=== PATIENT | female | born 1995 | race Two or more races ===

== ENCOUNTER 2023-07-16 14:20 | Emergency (ER) | payer MEDICAID, OTHER ==
[~2023-07-16] VITALS: Ht 165.1 cm; Wt 53.5 kg
[2023-07-16] MEDS ORDERED: SODIUM CHLORIDE 0.9% 1,000 ML IV ONE ×2 (14:45)
[2023-07-16] MEDS ORDERED: NALOXONE HCL 1MG/ML 2ML SYRINGE IV ONE (15:30)
[2023-07-16 15:54] LABS: Alanine Aminotransferase 35 U/L (7-40); Albumin 4.3 g/dL (3.2-4.8); Alkaline Phosphatase 69 U/L (46-116); Anion Gap 10 (5-15); Aspartate Aminotransferase 30 U/L (13-40); Calcium 9.5 mg/dL (8.7-10.4); Carbon Dioxide 21 mmol/L (20-30); Chloride 107 mmol/L (98-107); Glucose 105 mg/dL (74-106); Potassium 3.3 mmol/L (3.5-5.1); Sodium 138 mmol/L (136-145)
[2023-07-16 15:55] LABS: Bilirubin, Total 0.3 mg/dL (0.2-1.0); Total Protein 7.8 g/dL (5.7-8.2)
[2023-07-16 15:56] LABS: Basophils # (auto) 0.1 10 ^3/uL (0-0.2); Basophils % (auto) 1.2 % (0.0-2.0); Eosinophils # (auto) 0.1 10 ^3/uL (0-0.8); Eosinophils % (auto) 1.2 % (0.0-7.0); Hematocrit 31.4 % (36.0-46.0); Hemoglobin 9.5 g/dL (12.2-16.2); Lymphocytes # (auto) 2.1 10 ^3/uL (0.4-5.4); Lymphocytes % (auto) 28.7 % (10.0-50.0); Mean Corpuscular Hemoglobin 17.8 pg (28.0-32.0); Mean Corpuscular Hgb Conc. 30.2 g/dL (32.0-36.0); Mean Corpuscular Volume 58.9 fL (80.0-100.0); Monocytes # (auto) 0.5 10 ^3/uL (0-1.3); Monocytes % (auto) 6.3 % (0.0-12.0); Neutrophils # (auto) 4.6 10 ^3/uL (1.6-8.6); Neutrophils % (auto) 62.6 % (37.0-80.0); Nucleated Red Blood Cells % 0.1 %; Red Blood Cells 5.34 10^6/uL (4.0-5.20); Red Cell Distribution Width 18.8 % (11.8-14.3); White Blood Cell 7.4 10^3/uL (4.4-10.8)
[2023-07-16 16:03] LABS: BUN/Creatinine Ratio 7.8 (10.0-20.0); Blood Urea Nitrogen < 5 mg/dL (9-23)
[2023-07-17 05:45] VITALS: PULSE 82; RESP 16; O2SAT 97
[2023-07-17] MEDS ORDERED: THIAMINE 100mg/ml INJ (200mg/2ml VIAL) IV ONE (06:45)
[2023-07-17 07:12] LABS: Rapid Influenza A Negative (Negative); Rapid Influenza B Negative (Negative); Urine Bacteria NONE SEEN /hpf (None Seen); Urine Blood 3+ /uL (Negative); Urine Clarity Clear (Clear); Urine Color Yellow (Yellow); Urine Mucus FEW (None Seen); Urine Protein, UAD 1+ (Negative); Urine Specific Gravity 1.029 (1.001-1.035); Urine WBC 2 /hpf (0 - 5); Urine pH 6.5 (5.0-8.0)
[2023-07-17 07:13] LABS: COVID19 ANTIGEN SOFIA FIA NEGATIVE (NEGATIVE)
[2023-07-17 07:23] LABS: Amphetamine Screen, Urine Pos (NEGATIVE); Barbiturate Scree,Urine Neg (NEGATIVE); Benzodiazephine Screen, Urine Neg (NEGATIVE); Cocaine Screen, Urine Neg (NEGATIVE); Opiate Scree,Urine Neg (NEGATIVE)
[2023-07-17 07:24] LABS: Cannabinoid Screen, Urine Neg (NEGATIVE); Phencyclidine Screen, Urine Neg (NEGATIVE)
[2023-07-17 08:00] VITALS: BP 128/71; PULSE 84; RESP 16; TEMP 98.7; O2SAT 98
== END 2023-07-17 14:29 | disposition left against medical advice (07) ==
LOC: ER 14:20 → EDBD 14:20 → ER 07-17 14:29
DX: R41.82 Altered mental status, unspecified (principal); T40.415A Adverse effect of fentanyl or fentanyl analogs, initial encounter; Z79.899 Other long term (current) drug therapy; Z20.822 Contact with and (suspected) exposure to COVID-19; Y92.89 Other specified places as the place of occurrence of the external cause
CPT/HCPCS: 36415; 80053; 80307; 80320; 81001; 85025; 87426; 87804; 96374; 99283; J3411

== ENCOUNTER 2024-09-19 08:10 | Emergency (ER) | payer MEDICAID ==
[~2024-09-19] VITALS: Ht 182.9 cm; Wt 55.0 kg
[2024-09-19 08:16] VITALS: BP 126/80; PULSE 99; RESP 18; O2SAT 100
--- NOTE | 2024-09-19 08:42 | ED.PDOC ---
History of Present Illness HPI Comments 29-year-old female with no reported PMHx brought in by EMS presents with a chief complaint of nausea and vomiting while being currently . Patient states that she is currently , but does not know how far along she is, . Patient mentions that her LMP was May 2024 and that is when she found out she was . Patient denies seeing an DIESEL RETROFIT DESIGNER or taking vitamins. Patient mentions that she had 2 episodes of emesis and it contained bright red tinged blood which is why she called EMS. Patient mentions that onset of symptoms began yesterday around 0300. No other symptoms or modifying factors present at this time. Chief Complaint: GI Bleed Time Seen by MD: 08:16 Reviewed Notes: Medications, Allergies Allergies: Coded Allergies: NO KNOWN ALLERGIES (Unverified , 07/16/23) Information Source: Patient, Emergency Med Personnel Mode of Arrival: EMS Severity: Moderate Timing: Hours Duration: Since onset Prehospital treatment: None Past Medical History PAST MEDICAL HISTORY: Denies Surgical History: Denies all surgeries COMPLAINT ANALYST History: No Pertinent COMPLAINT ANALYST History Family History Family History: Reviewed,noncontributory to illness Social History Smoker: Non-Smoker Alcohol: Denies ETOH Use Drugs: Other Lives In: Home Constitutional: denies: chills, diaphoresis, fatigue, fever, malaise, sweats, weakness, others EENTM: denies: blurred vision, double vision, ear bleeding, ear discharge, ear drainage, ear pain, ear ringing, eye pain, eye redness, hearing loss, mouth pain, mouth swelling, nasal discharge, nose bleeding, nose congestion, nose pain, photophobia, tearing, throat pain, throat swelling, voice changes, others Respiratory: denies: cough, hemoptysis, orthopnea, SOB at rest, shortness of breath, SOB with excertion, stridor, wheezing, others Cardiovascular: denies: chest pain, dizzy spells, diaphoresis, Dyspnea on exertion, edema, irregular heart beat, left arm pain, lightheadedness, palpitations, PND, syncope, others Gastrointestinal: reports: nausea, vomiting; denies: abdomen distended, abdominal pain, blood streaked bowels, constipated, diarrhea, dysphagia, difficulty swallowing, hematemesis, melena, poor appetite, poor fluid intake, rectal bleeding, rectal pain, others Genitourinary: reports: ; denies: abnormal vagina bleeding, burning, dyspareunia, dysuria, flank pain, frequency, hematuria, incontinence, pain, vagina discharge, urgency, others Neurological: denies: dizziness, fainting, headache, left sided numbness, left sided weakness, numbness, paresthesia, pre-existing deficit, right sided numbness, right sided weakness, seizure, speech problems, tingling, tremors, weakness, others Musculoskeletal: denies: back pain, gout, joint pain, joint swelling, muscle pain, muscle stiffness, neck pain, others Integumetry: denies: bruises, change in color, change in hair/nails, dryness, laceration, lesions, lumps, rash, wounds, others Allergic/Immunocompromised: denies: Difficulty Healing, Frequent Infections, Hives, Itching, others Hematologic/Lymphatic: denies: anemia, blood clots, easy bleeding, easy bruising, swollen glands, others Endocrine: denies: excessive hunger, excessive sweating, excessive thirst, excessive urination, flushing, intolerance to cold, intolerance to heat, unexplained weight gain, unexplained weight loss, others Psychiatric: denies: anxiety, bipolar disorder, depression, hopeless, panic disorder, schizophrenia, sleepless, suicidal, others All Other Systems: Reviewed and Negative Physical Exam General Appearance: Moderate Distress, Normal HEENT: Normal ENT Inspection, Pharynx Normal, TMs Normal Neck: Full Range of Motion, Non-Tender, Normal, Normal Inspection Respiratory: Chest Non-Tender, Lungs Clear, No Accessory Muscle Use, No Respiratory Distress, Normal Breath Sounds Cardiovascular: No Edema, No JVD, No Murmur, No Gallop, Normal Peripheral P ulses, Regular Rate/Rhythm Breast Exam: Deferred Gastrointestinal: No Organomegaly, Non Tender, No Pulsatile Mass, Normal Bowel Sounds, Soft Genitalia: Deferred Pelvic: Deferred Rectal: Deferred Extremities: No calf tenderness, Normal capillary refill, Normal inspection, Normal range of motion, Non-tender, No pedal edema Musculoskeletal : Apperance: Normal Neurologic: Alert, process helper II-XII nml as Tested, No Motor Deficits, Normal Affect, Normal Mood, No Sensory Deficits Cerebellar Function: Normal Reflexes: Normal Skin: Dry, Normal Color, Warm Peripheral Pulses: 3+ Radial (R), 3+ Radial (L) Lymphatic: No Adenopathy Was a procedure done? Was a procedure done?: No Differential Dx Considerations may include: Anemia Electrolyte imbalance X-Ray, Labs, Meds, VS Vital Signs Date Time Temp Pulse Resp B/P (MAP) Pulse Ox O2 Delivery O2 Flow Rate FiO2 09/19/24 08:16 97.1 99 18 126/80 (95) 100 Lab Test 09/19/24 09:05 Range/Units White Blood Count 7.2 4.4-10.8 10^3/uL Red Blood Count 4.49 4.0-5.20 10^6/uL Hemoglobin 10.5 L 12.2-16.2 g/dL Hematocrit 32.3 L 36.0-46.0 % Mean Corpuscular Volume 71.9 L 80.0-100.0 fL Mean Corpuscular Hemoglobin 23.4 L 28.0-32.0 pg Mean Corpuscular Hemoglobin Concent 32.5 32.0-36.0 g/dL Red Cell Distribution Width 16.1 H 11.8-14.3 % Platelet Count 277 140-450 10^3/uL Mean Platelet Volume 7.3 6.9-10.8 fL Neutrophils (%) (Auto) 55.0 37.0-80.0 % Lymphocytes (%) (Auto) 33.0 10.0-50.0 % Monocytes (%) (Auto) 9.9 0.0-12.0 % Eosinophils (%) (Auto) 1.6 0.0-7.0 % Basophils (%) (Auto) 0.5 0.0-2.0 % Neutrophils # (Auto) 4.0 1.6-8.6 10 ^3/uL Lymphocytes # (Auto) 2.4 0.4-5.4 10 ^3/uL Monocytes # (Auto) 0.7 0-1.3 10 ^3/uL Eosinophils # (Auto) 0.1 0-0.8 10 ^3/uL Basophils # (Auto) 0 0-0.2 10 ^3/uL Nucleated Red Blood Cells 0.1 % Beta HCG, Quantitative 99071.5 H 1.5-4.2 mIU/mL Patient alert. Nausea. She is . Vitals stable. She has been followed by any OBGYN. She does not take care of herself. Ultrasound reveals normal . Possible UTI. Was given prescription of Keflex antibiotic. Explained to the patient. Was told to follow up with her OBGYN. Was told to follow up with her primary care physician. Was told to come back if there is any problem. Time of 1ST Reevaluation: 08:46 Reevaluation 1ST: Improved Time of 2ND Reevaluation: 12:11 Reevaluation 2ND: Improved Patient Education/Counseling: Diagnosis, Treatment, Prognosis Family Education/Counseling: Diagnosis, Treatment, Prognosis Departure 1 Departure Time of Disposition: 08:44 Impression: Primary Impression: Normal Qualified Codes: Z34.90 - Encounter for supervision of normal , unspecified, unspecified trimester Disposition: 01 HOME / SELF CARE / HOMELESS Condition: Good e-Prescriptions Cephalexin (KEFLEX CAPSULE) 250 Mg Cp 250 MG PO QID for 5 Days, #20 BOTTLE Prov: BLAKE KATE MD 09/19/24 Discharged With: Self Critical Care Note Critical Care Time?: No Stability Stability form required: No Heart Score Heart Score: Heart Score Response (Comments) Value History N/A 0 EKG N/A 0 Age N/A 0 Risk Factors N/A 0 Troponin N/A 0 Total 0 I personally scribed for BLAKE KATE MD ([email or web address]) on 09/19/24 at 08:42. Electronically submitted by Toi Gardner ([email or web address]). BLAKE KATE MD Sep 19, 2024 08:42
[2024-09-19 09:20] LABS: Basophils # (auto) 0 10 ^3/uL (0-0.2); Eosinophils # (auto) 0.1 10 ^3/uL (0-0.8); Hemoglobin 10.5 g/dL (12.2-16.2); Monocytes # (auto) 0.7 10 ^3/uL (0-1.3)
--- NOTE | 2024-09-19 09:21 | DVH ---
OB ULTRASOUND COMPLETE: HISTORY: spotting TECHNIQUE: Multiple real-time grayscale images of the gravid uterus with duplex Doppler color flow an d M-mode spectral analysis. FINDINGS: IUP single live fetus at 25 weeks 5 days average ultrasound age (AUA) based on composite averages of the BPD, head circumference, abdominal circumference and femur length MEASUREMENTS: BPD: 6.5 cm GA: 26w 2d HC: 24.1 cm GA: 26w 1d AC: 20.2 cm GA: 24w 6d FL: 4.6 cm GA: 25w 3d Estimated weight 792 grams heart rate 158 beats per minute CLIFFORD 13.1 cm there is debris within the amniotic anatomic survey: anatomic survey: Lateral ventricles: Not visualized Posterior fossa: Not visualized Umbilical cord: Normal three-vessel Spine: Not visualized Heart: Not visualized Kidneys: Normal without hydronephrosis Bladder: Normal Lower extremities: Normal Upper extremities: Normal Stomach: Normal stomach bubble Diaphragms: Normal Nose/lips: Normal Breech Presentation Posterior Placenta without previa or abruption Cervix is closed measuring 3.4 cm IMPRESSION: IUP single live fetus at 25 weeks 5 days AUA corresponding to an CHAVA of 12/28/2024. Suboptimal evaluation evaluation of the anatomy given advanced. Debris in the amniotic fluid.
[2024-09-19 09:23] LABS: Basophils % (auto) 0.5 % (0.0-2.0); Eosinophils % (auto) 1.6 % (0.0-7.0); Hematocrit 32.3 % (36.0-46.0); Lymphocytes # (auto) 2.4 10 ^3/uL (0.4-5.4); Mean Corpuscular Hemoglobin 23.4 pg (28.0-32.0); Mean Corpuscular Hgb Conc. 32.5 g/dL (32.0-36.0); Mean Corpuscular Volume 71.9 fL (80.0-100.0); Monocytes % (auto) 9.9 % (0.0-12.0); Nucleated Red Blood Cells % 0.1 %; Platelet Count (auto) 277 10^3/uL (140-450); Red Blood Cells 4.49 10^6/uL (4.0-5.20); Red Cell Distribution Width 16.1 % (11.8-14.3); White Blood Cell 7.2 10^3/uL (4.4-10.8)
[2024-09-19] MEDS ORDERED: CEPH250C PO (12:11)
== END 2024-09-19 12:46 | disposition home or self-care (01) ==
LOC: ER 08:10 → EDBD 08:10 → ER 12:46
DX: O21.8 Other vomiting complicating pregnancy (principal); R10.2 Pelvic and perineal pain; Z3A.25 25 weeks gestation of pregnancy
CPT/HCPCS: 36415; 76805; 84702; 85025

== ENCOUNTER 2025-06-22 22:45 | Inpatient (IN) | payer MEDICAID ==
[~2025-06-22] VITALS: Ht 172.7 cm; Wt 66.3 kg
[~2025-06-22 22:45] MED LIST: CEPH250C PO
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
[2025-06-23 00:13] LABS: Mean Corpuscular Volume 73.7 fL (80.0-100.0)
[2025-06-23 00:15] LABS: Hematocrit 34.4 % (36.0-46.0); Hemoglobin 11.2 g/dL (12.2-16.2); Mean Corpuscular Hemoglobin 24.0 pg (28.0-32.0); Nucleated Red Blood Cells % 0.0 %
[2025-06-23] MEDS: VANCOMYCIN 1GM/250ML KIT 250 ML IV ONE (00:16)
[2025-06-23 00:28] LABS: Albumin 3.8 g/dL (3.2-4.8); Alkaline Phosphatase 85 U/L (46-116); Anion Gap 6 (5-15); BUN/Creatinine Ratio 13.6 (10.0-20.0); Calcium 9.5 mg/dL (8.7-10.4); Carbon Dioxide 30 mmol/L (20-31); Chloride 103 mmol/L (98-107); Glucose 95 mg/dL (74-106); Potassium 3.9 mmol/L (3.5-5.1); Sodium 139 mmol/L (136-145)
[2025-06-23 00:30] LABS: Alanine Aminotransferase 120 U/L (7-40); Bilirubin, Total 0.3 mg/dL (0.2-1.0); Blood Urea Nitrogen 9 mg/dL (9-23); Total Protein 8.8 g/dL (5.7-8.2)
[2025-06-23 01:40] VITALS: BP 124/82; PULSE 104; RESP 18; TEMP 99; O2SAT 100
[2025-06-23] MEDS ORDERED: VANCOMYCIN PER PHARMACY 0 MG IV SCH (02:45)
[2025-06-23] MEDS ORDERED: SODIUM CHLORIDE 0.9% 1,000 ML IV SCH (02:45)
[2025-06-23] MEDS ORDERED: ACETAMINOPHEN 325 MG TAB PO PRN (02:45)
[2025-06-23] MEDS ORDERED: CEFEPIME 1GM/50ML 50 ML IV ONE (02:45)
[2025-06-23] MEDS ORDERED: VANCOMYCIN 1GM/250ML KIT IV ONE (03:00)
--- NOTE | 2025-06-23 03:00 | DVHHPRES ---
History of Present Illness Resident Creating Document: SONDRA HAJI RESIDENT History of Present Illness This is a 29-year-old female homeless, polysubstance abuse, hepatitis-C virus, IVD not treated came to hospital with complaint of left foot pain. Left foot pain 8/10 intensity, dull in nature, aggravated during weight-bearing, mild relieved on elevated and leg rest . Patient had history of spider bite 2 weeks ago and become swollen tender, went to [facility] s/p incision drainage and wash with normal saline. Patient left AMA without any prescribed medication including antibiotic. Patient condition worsen day by day and foul- smelling discharge noted from the wound and decided to go urgent care and finally Patient sent to hospital. Patient denies any sick contact or recent travel. Patient clean wound by herself which is not adequate because of no living place. Denies any fever, chest pain, SOB, headache, abdominal pain, dysuria or any other focal weakness. Past medical history: As above Past surgical history: Nothing contributory Family history: Nothing contributory Personal history: Smoking cigarettes back fatigue, using crystal meth, IVD PCP: NOT SELECTED ALLERGY: No known allergy Home medication: None Review of Systems Constitutional: Yes: Chills, Malaise; No: Fever, Sweats, Weakness, Other Eyes: No: Pain, Vision change, Conjunctivae inflammation, Eyelid inflammation, Other, Redness ENT: No: Ear pain, Ear discharge, Nose pain, Nose discharge, Nose congestion, Mouth pain, Mouth swelling, Throat pain, Throat swelling, Other Respiratory: No: Cough, Dry, Shortness of breath, SOB with excertion, Wheezing, Hemoptysis, Pleuritic Pain, Sputum, Wheezing, Other Cardiovascular: No: Chest Pain, Palpitations, Orthopnea, Paroxysmal Noc. Dyspnea, Edema, Lt Headedness, Other Gastrointestinal: No: Nausea, Vomiting, Abdominal Pain, Diarrhea, Constipation, Melena, Hematochezia, Other Genitourinary: No Dysuria, No Frequency, No Incontinence, No Hematuria, No Retention, No Other Musculoskeletal: other (Foul-smelling discharge), leg pain, foot pain (Left); No: neck pain, shoulder pain, arm pain, back pain, hand pain Skin: No: Rash, Lesions, Jaundice, Bruising, Other Neurological: No: Weakness, Numbness, Incoordination, Change in speech, Confusion, Seizures, Other Allergies: Coded Allergies: NO KNOWN ALLERGIES (Unverified , 07/16/23) Medications Current Medications Medications Dose Ordered Sig/Jose G Route Start Time Stop Time Status Last Admin Dose Admin Sodium Chloride 1,000 ml @ 60 mls/hr [id number] IV 06/23/25 02:45 UNV Zinc Sulfate 220 mg DAILY PO 06/23/25 10:00 UNV Ascorbic Acid 500 mg BID PO 06/23/25 10:00 UNV Acetaminophen 650 mg Q6HP PRN PO 06/23/25 02:45 UNV Exam Vital Signs Vital Signs Date Time Temp Pulse Resp B/P (MAP) Pulse Ox O2 Delivery O2 Flow Rate FiO2 06/23/25 01:40 99.0 104 18 124/82 (96) 100 99.0 General Appearance: Alert, Oriented X3, Cooperative, No acute distress, moderate distress HEENT: Atraumatic, PERRLA, EOMI, Other Respiratory: Clear to auscultation, Normal air movement Cardiovascular: Regular rate, Normal S1, Normal S2, No murmurs Abdominal: Normal bowel sounds, Soft, No tenderness, No hepatospenomegaly Extremities: No clubbing, Other (Swollen tender left foot, foul smelling whitish/yellowish discharge present dorsal surface of left foot) Skin: No rashes, No breakdown Neuro: Normal gait, Normal speech, Normal tone, Sensation intact Psych/Mental Status: Mental status NL Labs/Xrays Labs Test 06/22/25 23:45 Range/Units White Blood Count 5.6 4.4-10.8 10^3/uL Red Blood Count 4.66 4.0-5.20 10^6/uL Hemoglobin 11.2 L 12.2-16.2 g/dL Hematocrit 34.4 L 36.0-46.0 % Mean Corpuscular Volume 73.7 L 80.0-100.0 fL Mean Corpuscular Hemoglobin 24.0 L 28.0-32.0 pg Mean Corpuscular Hemoglobin Concent 32.6 32.0-36.0 g/dL Red Cell Distribution Width 17.5 H 11.8-14.3 % Platelet Count 545 H 140-450 10^3/uL Mean Platelet Volume 6.6 L 6.9-10.8 fL Neutrophils (%) (Auto) 42.1 37.0-80.0 % Lymphocytes (%) (Auto) 46.4 10.0-50.0 % Monocytes (%) (Auto) 8.7 0.0-12.0 % Eosinophils (%) (Auto) 2.0 0.0-7.0 % Basophils (%) (Auto) 0.8 0.0-2.0 % Neutrophils # (Auto) 2.4 1.6-8.6 10 ^3/uL Lymphocytes # (Auto) 2.6 0.4-5.4 10 ^3/uL Monocytes # (Auto) 0.5 0-1.3 10 ^3/uL Eosinophils # (Auto) 0.1 0-0.8 10 ^3/uL Basophils # (Auto) 0 0-0.2 10 ^3/uL Nucleated Red Blood Cells 0.0 % Sodium Level 139 136-145 mmol/L Potassium Level 3.9 3.5-5.1 mmol/L Chloride Level 103 98-107 mmol/L Carbon Dioxide Level 30 20-31 mmol/L Anion Gap 6 5-15 Blood Urea Nitrogen 9 9-23 mg/dL Creatinine 0.66 0.550-1.02 mg/dL Glomerular Filtration Rate Calc 121 >90 mL/min BUN/Creatinine Ratio 13.6 10.0-20.0 Serum Glucose 95 74-106 mg/dL Lactic Acid Level 1.0 0.4-2.0 mmol/L Calcium Level 9.5 8.7-10.4 mg/dL Total Bilirubin 0.3 0.2-1.0 mg/dL Aspartate Amino Transferase (AST) 134 H 13-40 U/L Alanine Aminotransferase (ALT) 120 H 7-40 U/L Alkaline Phosphatase 85 46-116 U/L Total Protein 8.8 H 5.7-8.2 g/dL Albumin 3.8 3.2-4.8 g/dL SEPSIS Sepsis Screen Date sepsis recognized/suspect: Jun 22, 2025 Time Sepsis recognized/suspect: 2249 Recent Procedure: No On Antibiotic Therapy: No Respiratory Rate >20: No Heart Rate >90: Yes Temp<36 C (96.8 F) or >38.3 C: No SBP <90 or MAP <65 mmHG: No New Acute Mental Status Change: No Is the patient on CPAP, BIPAP,: No Physician Orders Urinalysis (06/22/25 23:24) Blood Culture (06/22/25 23:24) Drug Screen (06/22/25 23:24) Ct L Foot Wo Contrast (06/22/25 23:24) Admit (06/23/25 02:34) Code Status (06/23/25 02:34) Sodium Chloride 0.9% (06/23/25 02:45) Zinc Sulfate (06/23/25 10:00) Ascorbic Acid Tablet (Vitamin C Tablet) (06/23/25 10:00) Echo 2d Mode Cardiac Dop (06/23/25 02:34) Acetaminophen Tablet (Tylenol Tablet) (06/23/25 02:45) Notify Md Of Changes From Base (06/23/25 02:34) Vancomycin (06/23/25 02:45) Cefepime 1 Gm (06/23/25 10:00) Cefepime 1 Gm (06/23/25 02:45) Vital Signs Date Time Temp Pulse Resp B/P (MAP) Pulse Ox O2 Delivery O2 Flow Rate FiO2 06/23/25 01:40 99.0 104 18 124/82 (96) 100 99.0 06/22/25 22:50 98.1 104 18 138/103 98 98.1 Laboratory Tests Test 06/22/25 23:45 Lactic Acid Level 1.0 mmol/L (0.4-2.0) White Blood Count 5.6 10^3/uL (4.4-10.8) Medications Medications Dose Ordered Sig/Jose G Route Start Time Stop Time Status Last Admin Dose Admin Vancomycin HCl 250 ml @ 250 mls/hr ONCE ONCE IV 06/22/25 23:45 06/23/25 00:44 DC 06/23/25 00:16 250 MLS/HR Assessment/Plan Assessment/Plan Nonhealing stage IV wound dorsal ulcer left foot Left foot pain Questionable osteomyelitis left foot In ER patient received vancomycin Empiric antibiotic vancomycin and cefepime Pain management IVF CT left food Wound care Consult UDS Lactic acid:1.0 MRSA Blood culture and wound culture Monitor labs and vitals Microcytic hypochromic anemia likely KVNG hemoglobin 11.2, HCT 34.4, MCV 73.7, RDW 17.5 Thrombocytosis likely hemoconcentration monitor CBC Transaminitis HVC NOTtreated AST 134, ALT 120, ALP 85 Monitor lab Polysubstance abuse/IV drug user Counseling done>13 minutes spent UDS Diet: Regular GI prophylaxis: Famotidine DVT prophylaxis: Heparin Goals of care discussion. More than 27 minute spent with patient. Full code status. Case discussed with Dr. Maurice Plan discussed with: Patient, Other (Nurse) My Orders Orders - SONDRA HAJI Procedure Category Date Status Time Admit ADMIT 06/23/25 Transmitted 02:34 Code Status CODE 06/23/25 Transmitted 02:34 Sodium Chloride 0.9% PHA 06/23/25 Logged 02:45 Zinc Sulfate PHA 06/23/25 Logged 10:00 Ascorbic Acid Tablet PHA 06/23/25 Logged (Vitamin C Tablet) 10:00 Echo 2d Mode Cardiac US 06/23/25 Logged DOP 02:34 Acetaminophen Tablet PHA 06/23/25 Logged (Tylenol Tablet) 02:45 Notify Of Changes ANGELA 06/23/25 In Process From Base 02:34 Vancomycin PHA 06/23/25 Verified 02:45 Cefepime 1 Gm PHA 06/23/25 Verified 10:00 Cefepime 1 Gm PHA 06/23/25 Verified 02:45 Date of Service: Jun 23, 2025 Billing Provider: CLAY MAURICE MD Common Visit Codes: 79827-SLCEHAP INP/OBS CARE (HIGH) Secondary Visit Codes: 86464-[id number] CARE PLAN 30 MINUTES SONDRA HAJI Jun 23, 2025 03:00
--- NOTE | 2025-06-23 04:12 | DVH ---
EXAM: CT CT L FOOT WO CONTRAST HISTORY: wound COMPARISON: None TECHNIQUE: Noncontrast axial CT images of the left foot were performed. Sagittal and coronal reformatted images were obtained. This CT exam was performed using one or more of the following dose reduction techniques: Automated exposure control, adjustment of the mA and/or kv according to patient size, or the use of iterative reconstruction techniques. Radiation Dose Information: CT Dose: CTDI volume is 7.75 mGy. Dose-length product is 211.92 mGy*cm FINDINGS: No acute fracture or dislocation are identified about the left foot. No significant degenerative changes. There is a soft tissue defect along the lateral and dorsal aspect of the ankle with underlying skin thickening, soft tissue fluid/stranding. No drainable collection is seen. IMPRESSION: 1. Soft tissue defect along the lateral and dorsal aspect of the ankle with underlying skin thickening and soft tissue fluid/stranding. No drainable collection is seen. MRI would be more sensitive for the evaluation of suspected osteomyelitis if clinically indicated.
[2025-06-23] MEDS ORDERED: FAMOTIDINE 20 MG TAB PO SCH (10:00)
[2025-06-23] MEDS ORDERED: CEFEPIME 1GM/50ML 50 ML IV SCH ×2 (10:00→22:00)
[2025-06-23] MEDS ORDERED: ASCORBIC ACID 500 MG TAB PO SCH (10:00)
[2025-06-23] MEDS ORDERED: HEPARIN SODIUM (PORCINE) 5000 UNITS/ML 1ML VIAL SC SCH (10:00)
[2025-06-23] MEDS ORDERED: ZINC SULFATE 220mg CAP or TAB PO SCH (10:00)
--- NOTE | 2025-06-23 20:18 | DVHDSRES ---
Discharge Summary Date of Admission Resident Creating Document: SONDRA HAJI RESIDENT Jun 23, 2025 at 02:34 Date of Discharge: Jun 23, 2025 Labs/Diagnostic Data: Laboratory Results Test 06/22/25 23:45 White Blood Count 5.6 10^3/uL (4.4-10.8) Red Blood Count 4.66 10^6/uL (4.0-5.20) Hemoglobin 11.2 g/dL (12.2-16.2) Hematocrit 34.4 % (36.0-46.0) Mean Corpuscular Volume 73.7 fL (80.0-100.0) Mean Corpuscular Hemoglobin 24.0 pg (28.0-32.0) Mean Corpuscular Hemoglobin Concent 32.6 g/dL (32.0-36.0) Red Cell Distribution Width 17.5 % (11.8-14.3) Platelet Count 545 10^3/uL (140-450) Mean Platelet Volume 6.6 fL (6.9-10.8) Neutrophils (%) (Auto) 42.1 % (37.0-80.0) Lymphocytes (%) (Auto) 46.4 % (10.0-50.0) Monocytes (%) (Auto) 8.7 % (0.0-12.0) Eosinophils (%) (Auto) 2.0 % (0.0-7.0) Basophils (%) (Auto) 0.8 % (0.0-2.0) Neutrophils # (Auto) 2.4 10 ^3/uL (1.6-8.6) Lymphocytes # (Auto) 2.6 10 ^3/uL (0.4-5.4) Monocytes # (Auto) 0.5 10 ^3/uL (0-1.3) Eosinophils # (Auto) 0.1 10 ^3/uL (0-0.8) Basophils # (Auto) 0 10 ^3/uL (0-0.2) Nucleated Red Blood Cells 0.0 % Sodium Level 139 mmol/L (136-145) Potassium Level 3.9 mmol/L (3.5-5.1) Chloride Level 103 mmol/L (98-107) Carbon Dioxide Level 30 mmol/L (20-31) Anion Gap 6 (5-15) Blood Urea Nitrogen 9 mg/dL (9-23) Creatinine 0.66 mg/dL (0.550-1.02) Glomerular Filtration Rate Calc 121 mL/min (>90) BUN/Creatinine Ratio 13.6 (10.0-20.0) Serum Glucose 95 mg/dL (74-106) Lactic Acid Level 1.0 mmol/L (0.4-2.0) Calcium Level 9.5 mg/dL (8.7-10.4) Total Bilirubin 0.3 mg/dL (0.2-1.0) Aspartate Amino Transferase (AST) 134 U/L (13-40) Alanine Aminotransferase (ALT) 120 U/L (7-40) Alkaline Phosphatase 85 U/L (46-116) Total Protein 8.8 g/dL (5.7-8.2) Albumin 3.8 g/dL (3.2-4.8) Vitamin B12 Level 899 pg/mL (211-911) Vitamin D 25-Hydroxy 30.4 ng/mL (30.0-100) Other Laboratory Tests 06/22/25 23:45 Brief Hx & Hospital Course: This is a 29-year-old female homeless, polysubstance abuse, hepatitis-C virus, IVD not treated came to hospital with complaint of left foot pain. Left foot pain 8/10 intensity, dull in nature, aggravated during weight-bearing, mild relieved on elevated and leg rest . Patient had history of spider bite 2 weeks ago and become swollen tender, went to [facility] s/p incision drainage and wash with normal saline. Patient left AMA without any prescribed medication including antibiotic. Patient condition worsen day by day and foul- smelling discharge noted from the wound and decided to go urgent care and finally Patient sent to hospital. Patient denies any sick contact or recent travel. Patient clean wound by herself which is not adequate because of no living place. Denies any fever, chest pain, SOB, headache, abdominal pain, dysuria or any other focal weakness. Past medical history: As above Past surgical history: Nothing contributory Family history: Nothing contributory Personal history: Smoking cigarettes back fatigue, using crystal meth, IVD PCP: NOT SELECTED ALLERGY: No known allergy Patient left AMA and signed AMA form. Patient AAOX3, having capacity understanding all risk including worsening risk of morbidly and mortality. Explained layman terms by RN. Patient verbally understand what ever discussed. Condition undermined during discharged. Condition at Discharge: Undetermined Final Diagnosis/Problems List Nonhealing stage IV wound dorsal ulcer left foot Left foot pain Questionable osteomyelitis left foot Microcytic hypochromic anemia likely KVNG Thrombocytosis likely hemoconcentration Transaminitis Polysubstance abuse/IV drug user Discharge Disposition: AMA Discharge Instruct/Medications Scheduled Cephalexin (Keflex Capsule), 250 MG PO QID Discharge Statement: "Patient was advised to return to the ER or call 911 if any headaches, dizziness, shortness of breath, chest pain, abdominal pain, bleeding, fevers, or worsening of medical condition. Patient was counseled about treatment plan, medications, possible side effects, patientverbalized understanding. All questions were answered to the best of my ability. This discharge took greater then 30 minutes in planning, reviewing documentation, counseling the patient, and discussing with other team members." ASSESSMENT ASSESSMENT Assessment Visit Coding STANDARD RES Billing Provider: CLAY ANN MD Date of Service if different f: Jun 23, 2025 Common Visit Codes: [id number] INP/OBS CARE (HIGH) Secondary Visit Codes: 18941-[id number] CARE PLAN 30 MINUTES SONDRA HAJI RESIDENT Jun 23, 2025 20:18
== END 2025-06-23 04:28 | disposition left against medical advice (07) | DRG 344 ==
LOC: EDBD 22:45 → ER 22:45 → OVERFLOW 06-23 02:34
PROVIDERS: ATTEND Nurse Practitioner Family
DX: M86.8X7 Other osteomyelitis, ankle and foot (principal); L03.116 Cellulitis of left lower limb; Z59.00 Homelessness unspecified; D50.9 Iron deficiency anemia, unspecified; F17.210 Nicotine dependence, cigarettes, uncomplicated; D75.839 Thrombocytosis, unspecified; F19.10 Other psychoactive substance abuse, uncomplicated; L97.529 Non-pressure chronic ulcer of other part of left foot with unspecified severity; R74.01 Elevation of levels of liver transaminase levels; Z53.29 Procedure and treatment not carried out because of patient's decision for other reasons
CPT/HCPCS: 36415; 80053; 82306; 82607; 83605; 85025; 87040; G0378